=== PATIENT | male | born 1955 | race American Indian/Alaskan Native ===

== ENCOUNTER 2020-11-01 09:34 | Inpatient (IN) | payer OTHER ==
[2020-11-01 15:01] VITALS: BMI 25.0
[2020-11-01] MEDS ORDERED: LOPERAMIDE HCL 2 MG CAPSULE PO PRN (15:40)
[2020-11-01] MEDS ORDERED: guaiFENesin 200 MG/10 ML 10 ML UNIT-DOSE CUPS PO PRN (15:40)
[2020-11-01] MEDS ORDERED: P-EPHED 60MG/TRIPROLIDI 2.5MG TABLET PO PRN (15:40)
[2020-11-01] MEDS ORDERED: ACETAMINOPHEN 325 MG TABLET (FP) PO PRN (15:40)
[2020-11-01] MEDS ORDERED: MAGNESIUM HYDROX 2400MG/30ML ORAL SUSPENSION 30 ML CUP PO PRN (15:40)
[2020-11-01] MEDS ORDERED: MAGNESIUM CITRATE 300 ML BOTTLE PO PRN (15:40)
[2020-11-01] MEDS ORDERED: DOCUSATE SODIUM 100 MG CAPSULE (FP) PO PRN (15:44)
[2020-11-01] MEDS ORDERED: TUBERCULIN PPD 5 TU/0.1ML VIAL ID ONE (17:38)
[2020-11-01] MEDS: MAG HYDROX/AL HYDROX/SIMETH 30 ML UNIT-DOSE CUP PO PRN (17:44)
[2020-11-01] MEDS: PRENATAL VITAMINS W/ FOLIC ACID TABLET (FP) PO SCH (17:44)
[2020-11-01] MEDS: hydrOXYzine PAMOATE 25 MG CAPSULE (FP) PO SCH ×2 (17:45→21:57)
[2020-11-01] MEDS: NICOTINE POLACRILEX 2 MG GUM BUC PRN (17:45)
[2020-11-01] MEDS: NICOTINE 7 MG/24 HOURS TOPICAL PATCH TD SCH (18:02)
[2020-11-01] MEDS: MELATONIN 5 MG TABLETS PO SCH (21:55)
[2020-11-01] MEDS: THIAMINE HCL 100 MG TABLET (FP) PO SCH (21:57)
[2020-11-02] MEDS: hydrOXYzine PAMOATE 25 MG CAPSULE (FP) PO SCH ×5 (06:27→21:17)
[2020-11-02] MEDS: IBUPROFEN 400 MG TABLET (FP) PO PRN ×2 (06:28→21:15)
[2020-11-02] MEDS ORDERED: METHADONE HCL 10 MG TABLET PO ONE (08:12)
[2020-11-02] MEDS: PRENATAL VITAMINS W/ FOLIC ACID TABLET (FP) PO SCH (09:58)
[2020-11-02] MEDS: LOSARTAN POTASSIUM 50 MG TABLET PO SCH (09:58)
[2020-11-02] MEDS: amLODIPine BESYLATE 10 MG TABLET (FP) PO SCH (09:59)
[2020-11-02] MEDS: NICOTINE 7 MG/24 HOURS TOPICAL PATCH TD SCH (09:59)
[2020-11-02] MEDS ORDERED: PANTOPRAZOLE 40 MG TABLET PO ONE (10:35)
[2020-11-02 10:45] LABS: CALCIUM 8.5 mg/dL (8.5-10.1); HEMATOCRIT 39.5 % (35.4-49); HEMOGLOBIN 13.2 GM/dL (11.7-16.9); MCH 31.9 pg (25.7-33.7); MCHC 33.4 g/dl (32.0-35.9); MEAN CELL VOLUME 95.7 fl (80-96); MEAN PLT VOLUME 9.1 fl (7.5-11.1); PLATELET COUNT 188 K/MM3 (134-434); RBC 4.13 M/mm3 (4.00-5.60); RDW 14.9 % (11.9-15.9); WHITE BLOOD COUNT 6.4 K/mm3 (4.0-10.0)
[2020-11-02 10:46] LABS: ALBUMIN 3.3 g/dl (3.4-5.0); BLOOD UREA NITROGEN 16.4 mg/dL (7-18)
[2020-11-02 10:49] LABS: CREATININE 1.2 mg/dL (0.55-1.3)
[2020-11-02 10:51] LABS: BILIRUBIN,TOTAL 0.3 mg/dL (0.2-1); TOT PROT 6.4 g/dl (6.4-8.2)
[2020-11-02] MEDS: ABACAVIR/DOLUTEGRAVIR/LAMIVUDI (TRIUMEQ) TABLET -NF PO SCH (10:53)
[2020-11-02] MEDS: MAG HYDROX/AL HYDROX/SIMETH 30 ML UNIT-DOSE CUP PO PRN ×2 (13:46→19:56)
[2020-11-02] MEDS: THIAMINE HCL 100 MG TABLET (FP) PO SCH (21:15)
[2020-11-02] MEDS: MELATONIN 5 MG TABLETS PO SCH (21:15)
[2020-11-03] MEDS: METHADONE HCL 10 MG TABLET PO SCH (06:20)
[2020-11-03] MEDS: hydrOXYzine PAMOATE 25 MG CAPSULE (FP) PO SCH ×5 (06:20→22:06)
[2020-11-03] MEDS: PRENATAL VITAMINS W/ FOLIC ACID TABLET (FP) PO SCH (10:18)
[2020-11-03] MEDS: LOSARTAN POTASSIUM 50 MG TABLET PO SCH (10:18)
[2020-11-03] MEDS: PANTOPRAZOLE 40 MG TABLET PO SCH (10:19)
[2020-11-03] MEDS: amLODIPine BESYLATE 10 MG TABLET (FP) PO SCH (10:19)
[2020-11-03] MEDS: ABACAVIR/DOLUTEGRAVIR/LAMIVUDI (TRIUMEQ) TABLET -NF PO SCH (10:19)
[2020-11-03] MEDS: NICOTINE 7 MG/24 HOURS TOPICAL PATCH TD SCH (10:19)
[2020-11-03] MEDS: ALBUTEROL SO4 HFA INHALER IH PRN (17:03)
[2020-11-03 17:04] LABS: EPI CELLS 6 /uL (0-25.1); HYALINE CASTS 1 /uL (0-3.1); PH,URINE 5.5 (5.0-8.0); URINE APPEARANCE CLEAR; URINE BACTERIA 52 /uL (0-1359); URINE BILIRUBIN NEGATIVE (NEGATIVE); URINE COLOR YELLOW; URINE GLUCOSE (UA) NEGATIVE (NEGATIVE); URINE KETONE NEGATIVE (NEGATIVE); URINE LEUK ESTERASE NEGATIVE (NEGATIVE); URINE NITRITE NEGATIVE (NEGATIVE); URINE PROTEIN 2+ (NEGATIVE); URINE RBC 6 /uL (0-23.9); URINE UROBILINOGEN 0.2 mg/dL (0.2-1.0); URINE WBC 2 /uL (0-25.8)
[2020-11-03] MEDS: THIAMINE HCL 100 MG TABLET (FP) PO SCH (21:37)
[2020-11-03] MEDS: MELATONIN 5 MG TABLETS PO SCH (21:37)
[2020-11-04] MEDS: IBUPROFEN 400 MG TABLET (FP) PO PRN (06:10)
[2020-11-04] MEDS: METHADONE HCL 10 MG TABLET PO SCH (06:11)
[2020-11-04] MEDS: hydrOXYzine PAMOATE 25 MG CAPSULE (FP) PO SCH ×5 (06:11→21:25)
[2020-11-04] MEDS: ALBUTEROL SO4 HFA INHALER IH PRN ×2 (06:15→21:25)
[2020-11-04] MEDS: LOSARTAN POTASSIUM 50 MG TABLET PO SCH (09:36)
[2020-11-04] MEDS: PANTOPRAZOLE 40 MG TABLET PO SCH (09:36)
[2020-11-04] MEDS: amLODIPine BESYLATE 10 MG TABLET (FP) PO SCH (09:36)
[2020-11-04] MEDS: PRENATAL VITAMINS W/ FOLIC ACID TABLET (FP) PO SCH (09:36)
[2020-11-04] MEDS: ABACAVIR/DOLUTEGRAVIR/LAMIVUDI (TRIUMEQ) TABLET -NF PO SCH (09:37)
[2020-11-04] MEDS: NICOTINE 7 MG/24 HOURS TOPICAL PATCH TD SCH (09:37)
[2020-11-04] MEDS: THIAMINE HCL 100 MG TABLET (FP) PO SCH (21:25)
[2020-11-04] MEDS: MELATONIN 5 MG TABLETS PO SCH (21:35)
[2020-11-05] MEDS: ALBUTEROL SO4 HFA INHALER IH PRN ×2 (06:09→16:13)
[2020-11-05] MEDS: METHADONE HCL 10 MG TABLET PO SCH (06:11)
[2020-11-05] MEDS: hydrOXYzine PAMOATE 25 MG CAPSULE (FP) PO SCH ×2 (06:12→10:11)
[2020-11-05] MEDS: PRENATAL VITAMINS W/ FOLIC ACID TABLET (FP) PO SCH (10:09)
[2020-11-05] MEDS: NICOTINE 7 MG/24 HOURS TOPICAL PATCH TD SCH (10:09)
[2020-11-05] MEDS: LOSARTAN POTASSIUM 50 MG TABLET PO SCH (10:09)
[2020-11-05] MEDS: amLODIPine BESYLATE 10 MG TABLET (FP) PO SCH (10:09)
[2020-11-05] MEDS: NICOTINE POLACRILEX 2 MG GUM BUC PRN (10:09)
[2020-11-05] MEDS: PANTOPRAZOLE 40 MG TABLET PO SCH (10:09)
[2020-11-05] MEDS: ABACAVIR/DOLUTEGRAVIR/LAMIVUDI (TRIUMEQ) TABLET -NF PO SCH (10:10)
[2020-11-05] MEDS: MAG HYDROX/AL HYDROX/SIMETH 30 ML UNIT-DOSE CUP PO PRN (19:14)
[2020-11-05] MEDS: MELATONIN 5 MG TABLETS PO SCH (21:32)
[2020-11-05] MEDS: THIAMINE HCL 100 MG TABLET (FP) PO SCH (21:32)
[2020-11-06] MEDS: MAG HYDROX/AL HYDROX/SIMETH 30 ML UNIT-DOSE CUP PO PRN (00:42)
[2020-11-06] MEDS: METHADONE HCL 10 MG TABLET PO SCH (05:32)
[2020-11-06] MEDS ORDERED: PT OWN MED DRAWER 7, Y5N ONE (09:26)
[2020-11-06] MEDS: ALBUTEROL SO4 HFA INHALER IH PRN (10:12)
[2020-11-06] MEDS: PRENATAL VITAMINS W/ FOLIC ACID TABLET (FP) PO SCH (10:14)
[2020-11-06] MEDS: PANTOPRAZOLE 40 MG TABLET PO SCH (10:15)
[2020-11-06] MEDS: amLODIPine BESYLATE 10 MG TABLET (FP) PO SCH (10:15)
[2020-11-06] MEDS: LOSARTAN POTASSIUM 50 MG TABLET PO SCH (10:15)
[2020-11-06] MEDS: ABACAVIR/DOLUTEGRAVIR/LAMIVUDI (TRIUMEQ) TABLET -NF PO SCH (10:15)
[2020-11-06] MEDS: NICOTINE POLACRILEX 2 MG GUM BUC PRN (10:16)
[2020-11-06] MEDS: NICOTINE 7 MG/24 HOURS TOPICAL PATCH TD SCH (10:26)
[2020-11-06] MEDS ORDERED: ALBUTEROL SO4 2.5/IPRATROPIUM 0.5 INH SOL 3 ML VIAL.NEB. NEB SCH (13:30)
[2020-11-06] MEDS: THIAMINE HCL 100 MG TABLET (FP) PO SCH (21:55)
[2020-11-06] MEDS: hydrOXYzine PAMOATE 25 MG CAPSULE (FP) PO PRN (21:56)
[2020-11-06] MEDS: MELATONIN 5 MG TABLETS PO SCH (21:56)
[2020-11-06] MEDS: ALBUTEROL SO4 2.5/IPRATROPIUM 0.5 INH SOL 3 ML VIAL.NEB. NEB SCH (22:12)
[2020-11-07] MEDS: METHADONE HCL 10 MG TABLET PO SCH (06:33)
[2020-11-07] MEDS: PANTOPRAZOLE 40 MG TABLET PO SCH (10:15)
[2020-11-07] MEDS: PRENATAL VITAMINS W/ FOLIC ACID TABLET (FP) PO SCH (10:15)
[2020-11-07] MEDS: hydrOXYzine PAMOATE 25 MG CAPSULE (FP) PO PRN (10:15)
[2020-11-07] MEDS: ALBUTEROL SO4 2.5/IPRATROPIUM 0.5 INH SOL 3 ML VIAL.NEB. NEB SCH ×4 (10:15→22:42)
[2020-11-07] MEDS: amLODIPine BESYLATE 10 MG TABLET (FP) PO SCH (10:15)
[2020-11-07] MEDS: LOSARTAN POTASSIUM 50 MG TABLET PO SCH (10:15)
[2020-11-07] MEDS: NICOTINE 7 MG/24 HOURS TOPICAL PATCH TD SCH (10:16)
[2020-11-07] MEDS: NICOTINE POLACRILEX 2 MG GUM BUC PRN (10:16)
[2020-11-07] MEDS: ABACAVIR/DOLUTEGRAVIR/LAMIVUDI (TRIUMEQ) TABLET -NF PO SCH (10:17)
[2020-11-07] MEDS: IBUPROFEN 400 MG TABLET (FP) PO PRN (12:36)
[2020-11-07] MEDS: THIAMINE HCL 100 MG TABLET (FP) PO SCH (21:09)
[2020-11-07] MEDS: MELATONIN 5 MG TABLETS PO SCH (21:09)
[2020-11-07] MEDS: MAG HYDROX/AL HYDROX/SIMETH 30 ML UNIT-DOSE CUP PO PRN (23:04)
[2020-11-08] MEDS: ALBUTEROL SO4 HFA INHALER IH PRN ×2 (03:27→21:33)
[2020-11-08] MEDS: METHADONE HCL 10 MG TABLET PO SCH (06:12)
[2020-11-08] MEDS: PRENATAL VITAMINS W/ FOLIC ACID TABLET (FP) PO SCH (09:57)
[2020-11-08] MEDS: LOSARTAN POTASSIUM 50 MG TABLET PO SCH (09:58)
[2020-11-08] MEDS: PANTOPRAZOLE 40 MG TABLET PO SCH (09:59)
[2020-11-08] MEDS: amLODIPine BESYLATE 10 MG TABLET (FP) PO SCH (09:59)
[2020-11-08] MEDS: ABACAVIR/DOLUTEGRAVIR/LAMIVUDI (TRIUMEQ) TABLET -NF PO SCH (09:59)
[2020-11-08] MEDS: NICOTINE 7 MG/24 HOURS TOPICAL PATCH TD SCH (09:59)
[2020-11-08] MEDS: NICOTINE POLACRILEX 2 MG GUM BUC PRN (10:00)
[2020-11-08] MEDS: ALBUTEROL SO4 2.5/IPRATROPIUM 0.5 INH SOL 3 ML VIAL.NEB. NEB SCH ×4 (10:00→23:40)
[2020-11-08] MEDS: IBUPROFEN 400 MG TABLET (FP) PO PRN (10:01)
[2020-11-08] MEDS: MAG HYDROX/AL HYDROX/SIMETH 30 ML UNIT-DOSE CUP PO PRN (18:40)
[2020-11-08] MEDS: FAMOTIDINE 20 MG TABLET PO SCH (21:33)
[2020-11-08] MEDS: THIAMINE HCL 100 MG TABLET (FP) PO SCH (21:33)
[2020-11-08 22:03] VITALS: TEMP 97.8
[2020-11-08] MEDS: MELATONIN 5 MG TABLETS PO SCH (23:40)
[2020-11-09] MEDS: MAG HYDROX/AL HYDROX/SIMETH 30 ML UNIT-DOSE CUP PO PRN (00:55)
[2020-11-09] MEDS ORDERED: METHADONE HCL 10 MG TABLET PO SCH (06:00)
[2020-11-09 07:06] VITALS: BP 135/75; PULSE 72
[2020-11-09] MEDS: ALBUTEROL SO4 2.5/IPRATROPIUM 0.5 INH SOL 3 ML VIAL.NEB. NEB SCH (09:06)
[2020-11-09] MEDS: PRENATAL VITAMINS W/ FOLIC ACID TABLET (FP) PO SCH (09:09)
[2020-11-09] MEDS: LOSARTAN POTASSIUM 50 MG TABLET PO SCH (09:09)
[2020-11-09] MEDS: amLODIPine BESYLATE 10 MG TABLET (FP) PO SCH (09:09)
[2020-11-09] MEDS: FAMOTIDINE 20 MG TABLET PO SCH (09:10)
[2020-11-09] MEDS: NICOTINE 7 MG/24 HOURS TOPICAL PATCH TD SCH (09:10)
[2020-11-09] MEDS: ABACAVIR/DOLUTEGRAVIR/LAMIVUDI (TRIUMEQ) TABLET -NF PO SCH (09:11)
== END 2020-11-09 10:50 | disposition home or self-care (01) | DRG 895 ==
LOC: YASAS 09:34 → Y5N 15:36
PROVIDERS: ADMIT Allergy & Immunology; ATTEND Allergy & Immunology
PROC: HZ42ZZZ Group Counseling for Substance Abuse Treatment, Cognitive-Behavioral (ICD-10-PCS; principal; 2020-11-01)
DX: F11.20 Opioid dependence, uncomplicated (principal); F14.20 Cocaine dependence, uncomplicated; F17.210 Nicotine dependence, cigarettes, uncomplicated; F19.24 Other psychoactive substance dependence with psychoactive substance-induced mood disorder; F31.9 Bipolar disorder, unspecified; Z21 Asymptomatic human immunodeficiency virus [HIV] infection status; I10 Essential (primary) hypertension; J45.20 Mild intermittent asthma, uncomplicated; K21.9 Gastro-esophageal reflux disease without esophagitis; B18.2 Chronic viral hepatitis C; Z90.49 Acquired absence of other specified parts of digestive tract
CPT/HCPCS: 36415; 80053; 81003; 85027; 86780; 93005; 93010; 94640; C9803; U0003

== ENCOUNTER 2021-02-14 16:20 | Inpatient (IN) | payer OTHER ==
[2021-02-14] MEDS ORDERED: DOCUSATE SODIUM 100 MG CAPSULE (FP) PO PRN (17:39)
[2021-02-14] MEDS ORDERED: IBUPROFEN 400 MG TABLET (FP) PO PRN (17:41)
[2021-02-14] MEDS ORDERED: hydrOXYzine PAMOATE 25 MG CAPSULE (FP) PO PRN ×2 (17:41→17:49)
[2021-02-14] MEDS ORDERED: ONDANSETRON *ODT* 4 MG TABLET SL PRN (17:41)
[2021-02-14] MEDS ORDERED: MAG HYDROX/AL HYDROX/SIMETH 30 ML UNIT-DOSE CUP PO PRN (17:41)
[2021-02-14] MEDS ORDERED: METHOCARBAMOL 500 MG TABLET PO PRN (17:41)
[2021-02-14] MEDS ORDERED: BISMUTH SUBSALICYLATE 524 MG/30 ML PO PRN (17:41)
[2021-02-14] MEDS ORDERED: MAGNESIUM HYDROX 2400MG/30ML ORAL SUSPENSION 30 ML CUP PO PRN (17:41)
[2021-02-14] MEDS ORDERED: MAGNESIUM CITRATE 300 ML BOTTLE PO PRN (17:41)
[2021-02-14] MEDS ORDERED: ACETAMINOPHEN 325 MG TABLET (FP) PO PRN ×2 (17:41)
[2021-02-14] MEDS ORDERED: MENTHOL/PHENOL 1 EACH UD MM PRN (17:41)
[2021-02-14] MEDS ORDERED: METHADONE HCL 10 MG TABLET (FOR DETOX USE ONLY) PO ONE ×2 (17:43→19:00)
[2021-02-14] MEDS ORDERED: cloNIDine HCL 0.1 MG TABLET PO PRN (17:43)
[2021-02-14 18:13] VITALS: BMI 24.8
[2021-02-14] MEDS: amLODIPine BESYLATE 10 MG TABLET (FP) PO SCH (19:05)
[2021-02-14] MEDS: MELATONIN 5 MG TABLETS PO SCH (22:11)
[2021-02-14] MEDS: THIAMINE HCL 100 MG TABLET (FP) PO SCH (22:12)
[2021-02-14] MEDS: ABACAVIR/DOLUTEGRAVIR/LAMIVUDI (TRIUMEQ) TABLET -NF PO SCH (22:12)
[2021-02-15] MEDS ORDERED: METHADONE HCL 10 MG TABLET (FOR DETOX USE ONLY) ONE (09:07)
[2021-02-15] MEDS ORDERED: METHADONE HCL 5 MG TABLET (FOR DETOX USE ONLY) ONE (09:07)
[2021-02-15] MEDS ORDERED: METHADONE HCL 10 MG TABLET (FOR DETOX USE ONLY) PO ONE ×2 (10:00)
[2021-02-15] MEDS ORDERED: METHADONE (DETOX) 10 MG, METHADONE (DETOX) 5 MG PO SCH (10:00)
[2021-02-15] MEDS: LOSARTAN POTASSIUM 50 MG TABLET PO SCH (10:03)
[2021-02-15] MEDS: PRENATAL VITAMINS W/ FOLIC ACID TABLET (FP) PO SCH (10:03)
[2021-02-15] MEDS: amLODIPine BESYLATE 10 MG TABLET (FP) PO SCH (10:04)
[2021-02-15] MEDS: ABACAVIR/DOLUTEGRAVIR/LAMIVUDI (TRIUMEQ) TABLET -NF PO SCH ×2 (10:05→22:18)
[2021-02-15 10:12] LABS: HEMATOCRIT 37.7 % (35.4-49); HEMOGLOBIN 12.4 GM/dL (11.7-16.9); MCH 31.3 pg (25.7-33.7); MEAN CELL VOLUME 94.8 fl (80-96); MEAN PLT VOLUME 8.4 fl (7.5-11.1); PLATELET COUNT 256 10^3/uL (134-434); RBC 3.97 M/mm3 (4.00-5.60); RDW 14.2 % (11.9-15.9); WHITE BLOOD COUNT 9.2 K/mm3 (4.0-10.0)
[2021-02-15 10:13] LABS: CALCIUM 8.9 mg/dL (8.5-10.1)
[2021-02-15 10:14] LABS: BLOOD UREA NITROGEN 17.4 mg/dL (7-18)
[2021-02-15 10:17] LABS: CREATININE 1.1 mg/dL (0.55-1.3)
[2021-02-15 10:18] LABS: BILIRUBIN,TOTAL 0.4 mg/dL (0.2-1)
[2021-02-15] MEDS: PATIENT'S OWN MEDICATION (NON-FORMULARY) (Omeprazole 20 MG Capsule.Dr) PO SCH (13:59)
[2021-02-15] MEDS: THIAMINE HCL 100 MG TABLET (FP) PO SCH (22:18)
[2021-02-15] MEDS: FERROUS SO4 325 MG TABLET (FP) PO SCH (22:18)
[2021-02-15] MEDS: MELATONIN 5 MG TABLETS PO SCH (22:18)
[2021-02-16] MEDS ORDERED: ALBUTEROL SO4 HFA INHALER IH PRN (08:47)
[2021-02-16] MEDS ORDERED: METHADONE HCL 10 MG TABLET (FOR DETOX USE ONLY) PO ONE ×2 (10:00)
[2021-02-16] MEDS: amLODIPine BESYLATE 10 MG TABLET (FP) PO SCH (10:11)
[2021-02-16] MEDS: LOSARTAN POTASSIUM 50 MG TABLET PO SCH (10:11)
[2021-02-16] MEDS: FERROUS SO4 325 MG TABLET (FP) PO SCH ×2 (10:11→22:16)
[2021-02-16] MEDS: PRENATAL VITAMINS W/ FOLIC ACID TABLET (FP) PO SCH (10:11)
[2021-02-16] MEDS: PATIENT'S OWN MEDICATION (NON-FORMULARY) (Omeprazole 20 MG Capsule.Dr) PO SCH (10:14)
[2021-02-16] MEDS: THIAMINE HCL 100 MG TABLET (FP) PO SCH (22:16)
[2021-02-16] MEDS: MELATONIN 5 MG TABLETS PO SCH (22:17)
[2021-02-16] MEDS: ABACAVIR/DOLUTEGRAVIR/LAMIVUDI (TRIUMEQ) TABLET -NF PO SCH (22:17)
[2021-02-17] MEDS ORDERED: METHADONE HCL 5 MG TABLET (FOR DETOX USE ONLY) PO ONE (06:00)
[2021-02-17] MEDS ORDERED: METHADONE HCL 10 MG TABLET (FOR DETOX USE ONLY) PO ONE (10:00)
[2021-02-17] MEDS: LOSARTAN POTASSIUM 50 MG TABLET PO SCH (10:08)
[2021-02-17] MEDS: amLODIPine BESYLATE 10 MG TABLET (FP) PO SCH (10:08)
[2021-02-17] MEDS: FERROUS SO4 325 MG TABLET (FP) PO SCH ×2 (10:08→22:10)
[2021-02-17] MEDS: PATIENT'S OWN MEDICATION (NON-FORMULARY) (Omeprazole 20 MG Capsule.Dr) PO SCH (10:08)
[2021-02-17] MEDS: PRENATAL VITAMINS W/ FOLIC ACID TABLET (FP) PO SCH (10:08)
[2021-02-17] MEDS: ABACAVIR/DOLUTEGRAVIR/LAMIVUDI (TRIUMEQ) TABLET -NF PO SCH (22:10)
[2021-02-17] MEDS: THIAMINE HCL 100 MG TABLET (FP) PO SCH (22:10)
[2021-02-17] MEDS: MELATONIN 5 MG TABLETS PO SCH (22:10)
[2021-02-18] MEDS ORDERED: METHADONE HCL 5 MG TABLET (FOR DETOX USE ONLY) PO ONE (06:00)
[2021-02-18 06:43] VITALS: PULSE 81
[2021-02-18 09:21] VITALS: BP 140/73; TEMP 97.5
[2021-02-18] MEDS: LOSARTAN POTASSIUM 50 MG TABLET PO SCH (09:23)
[2021-02-18] MEDS: PATIENT'S OWN MEDICATION (NON-FORMULARY) (Omeprazole 20 MG Capsule.Dr) PO SCH (09:23)
[2021-02-18] MEDS: amLODIPine BESYLATE 10 MG TABLET (FP) PO SCH (09:24)
[2021-02-18] MEDS: FERROUS SO4 325 MG TABLET (FP) PO SCH (09:25)
[2021-02-18] MEDS: PRENATAL VITAMINS W/ FOLIC ACID TABLET (FP) PO SCH (09:27)
== END 2021-02-18 09:29 | disposition home or self-care (01) | DRG 897 ==
LOC: YASAS 16:20 → Y6N 17:53
PROVIDERS: ADMIT Allergy & Immunology; ATTEND Allergy & Immunology
PROC: HZ2ZZZZ Detoxification Services for Substance Abuse Treatment (ICD-10-PCS; principal; 2021-02-14)
DX: F11.23 Opioid dependence with withdrawal (principal); F14.20 Cocaine dependence, uncomplicated; F17.210 Nicotine dependence, cigarettes, uncomplicated; Z21 Asymptomatic human immunodeficiency virus [HIV] infection status; D64.9 Anemia, unspecified; I10 Essential (primary) hypertension; K21.9 Gastro-esophageal reflux disease without esophagitis; J44.9 Chronic obstructive pulmonary disease, unspecified; J45.20 Mild intermittent asthma, uncomplicated; R63.4 Abnormal weight loss; Z68.24 Body mass index [BMI] 24.0-24.9, adult; Z90.49 Acquired absence of other specified parts of digestive tract
CPT/HCPCS: 36415; 80053; 85027; 86780; 93005; 93010; C9803; U0003; U0005

== ENCOUNTER 2021-08-08 14:31 | Inpatient (IN) | payer OTHER ==
[2021-08-08 15:57] VITALS: BMI 24.3
[2021-08-08] MEDS ORDERED: guaiFENesin 200 MG/10 ML 10 ML UNIT-DOSE CUPS PO PRN (16:16)
[2021-08-08] MEDS ORDERED: LOPERAMIDE HCL 2 MG CAPSULE PO PRN (16:16)
[2021-08-08] MEDS ORDERED: ACETAMINOPHEN 325 MG TABLET (FP) PO PRN (16:16)
[2021-08-08] MEDS ORDERED: MAGNESIUM CITRATE 300 ML BOTTLE PO PRN (16:16)
[2021-08-08] MEDS ORDERED: MAGNESIUM HYDROX 2400MG/30ML ORAL SUSPENSION 30 ML CUP PO PRN (16:16)
[2021-08-08] MEDS ORDERED: NICOTINE 10 MG CARTRIDGE (INHALER) IH PRN (16:16)
[2021-08-08] MEDS ORDERED: P-EPHED 60MG/TRIPROLIDI 2.5MG TABLET PO PRN (16:16)
[2021-08-08] MEDS: hydrOXYzine PAMOATE 25 MG CAPSULE (FP) PO SCH ×2 (20:37→21:46)
[2021-08-08] MEDS: MAG HYDROX/AL HYDROX/SIMETH 30 ML UNIT-DOSE CUP PO PRN (20:37)
[2021-08-08] MEDS: MELATONIN 5 MG TABLETS PO SCH (21:46)
[2021-08-08] MEDS: THIAMINE HCL 100 MG TABLET (FP) PO SCH (21:47)
[2021-08-09] MEDS: methaDONE HCL 10 MG TABLET PO SCH (07:38)
[2021-08-09] MEDS: hydrOXYzine PAMOATE 25 MG CAPSULE (FP) PO SCH (07:39)
[2021-08-09] MEDS: NICOTINE 7 MG/24 HOURS TOPICAL PATCH TD SCH (09:35)
[2021-08-09] MEDS: PRENATAL VITAMINS W/ FOLIC ACID TABLET (FP) PO SCH (09:37)
[2021-08-09] MEDS: IBUPROFEN 400 MG TABLET (FP) PO PRN (09:37)
[2021-08-09] MEDS ORDERED: PATIENT'S OWN MEDICATION (NON-FORMULARY) (Losartan Potassium [Losartan Potassium] 100 MG T PO SCH (10:30)
[2021-08-09 10:34] LABS: HEMATOCRIT 36.8 % (35.4-49); HEMOGLOBIN 12.3 GM/dL (11.7-16.9); MCH 31.9 pg (25.7-33.7); MCHC 33.5 g/dl (32.0-35.9); MEAN PLT VOLUME 8.3 fl (7.5-11.1); PLATELET COUNT 226 10^3/uL (134-434); RBC 3.87 M/mm3 (4.00-5.60); RDW 14.8 % (11.9-15.9)
[2021-08-09 10:44] LABS: EPI CELLS 3 /uL (0-25.1); HYALINE CASTS 0 /uL (0-3.1); PH,URINE 7.5 (5.0-8.0); URINE APPEARANCE TURBID; URINE BACTERIA 13 /uL (0-1359); URINE BILIRUBIN NEGATIVE (NEGATIVE); URINE COLOR YELLOW; URINE GLUCOSE (UA) NEGATIVE (NEGATIVE); URINE KETONE NEGATIVE (NEGATIVE); URINE LEUK ESTERASE NEGATIVE (NEGATIVE); URINE NITRITE NEGATIVE (NEGATIVE); URINE PROTEIN 1+ (NEGATIVE); URINE RBC 2 /uL (0-23.9); URINE UROBILINOGEN 0.2 mg/dL (0.2-1.0); URINE WBC 4 /uL (0-25.8)
[2021-08-09 10:47] LABS: ALBUMIN 3.2 g/dl (3.4-5.0); BLOOD UREA NITROGEN 20.1 mg/dL (7-18); CALCIUM 8.3 mg/dL (8.5-10.1)
[2021-08-09 10:50] LABS: CREATININE 1.1 mg/dL (0.55-1.3)
[2021-08-09 10:52] LABS: BILIRUBIN,TOTAL 0.2 mg/dL (0.2-1); TOT PROT 6.2 g/dl (6.4-8.2)
[2021-08-09] MEDS: PANTOPRAZOLE 20 MG TABLET PO SCH (12:29)
[2021-08-09] MEDS: amLODIPine BESYLATE 10 MG TABLET (FP) PO SCH (12:29)
[2021-08-09] MEDS: ABACAVIR/DOLUTEGRAVIR/LAMIVUDI (TRIUMEQ) TABLET -NF PO SCH (12:30)
[2021-08-09] MEDS: MELATONIN 5 MG TABLETS PO SCH (21:38)
[2021-08-09] MEDS: THIAMINE HCL 100 MG TABLET (FP) PO SCH (21:38)
[2021-08-10] MEDS: methaDONE HCL 10 MG TABLET PO SCH (06:38)
[2021-08-10] MEDS: amLODIPine BESYLATE 10 MG TABLET (FP) PO SCH (09:42)
[2021-08-10] MEDS: LOSARTAN POTASSIUM 50 MG TABLET PO SCH (09:42)
[2021-08-10] MEDS: DOCUSATE SODIUM 100 MG CAPSULE (FP) PO SCH (09:42)
[2021-08-10] MEDS: PANTOPRAZOLE 20 MG TABLET PO SCH (09:42)
[2021-08-10] MEDS: PRENATAL VITAMINS W/ FOLIC ACID TABLET (FP) PO SCH (09:43)
[2021-08-10] MEDS: NICOTINE 7 MG/24 HOURS TOPICAL PATCH TD SCH (09:47)
[2021-08-10] MEDS: ABACAVIR/DOLUTEGRAVIR/LAMIVUDI (TRIUMEQ) TABLET -NF PO SCH (09:48)
[2021-08-10] MEDS: IBUPROFEN 400 MG TABLET (FP) PO PRN (10:05)
[2021-08-10] MEDS ORDERED: BENZOCAINE 20 % GEL TUBE MM PRN (12:10)
[2021-08-10] MEDS ORDERED: PT OWN MED DRAWER 7, Y5N ONE ×3 (12:33→18:23)
[2021-08-10] MEDS: LIDOCAINE 5% TOPICAL PATCH TP SCH (12:40)
[2021-08-10] MEDS: DAPSONE 25 MG TABLET PO SCH (14:55)
[2021-08-10] MEDS: METHOCARBAMOL 500 MG TABLET PO SCH ×3 (14:55→21:37)
[2021-08-10] MEDS ORDERED: ABACAVIR/DOLUTEGRAVIR/LAMIVUDI (TRIUMEQ) TABLET -NF PO SCH (18:00)
[2021-08-10] MEDS: LAMIVUDI PO SCH (18:28)
[2021-08-10] MEDS: ABACAVIR PO SCH (18:28)
[2021-08-10] MEDS: DOLUTEGRAVIR PO SCH (18:28)
[2021-08-10] MEDS: THIAMINE HCL 100 MG TABLET (FP) PO SCH (21:36)
[2021-08-10] MEDS: MELATONIN 5 MG TABLETS PO SCH (21:39)
[2021-08-10] MEDS: METHYL SALICYLATE/MENTHOL OINT 30 GM TUBE TP SCH (23:45)
[2021-08-10] MEDS: LIDOCAINE PATCH REMOVAL MC SCH (23:45)
[2021-08-11] MEDS: methaDONE HCL 10 MG TABLET PO SCH (06:36)
[2021-08-11] MEDS ORDERED: PT OWN MED DRAWER 7, Y5N ONE ×2 (08:23→18:07)
[2021-08-11] MEDS: ALBUTEROL SO4 HFA INHALER IH PRN (09:03)
[2021-08-11] MEDS: PANTOPRAZOLE 20 MG TABLET PO SCH (09:05)
[2021-08-11] MEDS: DOCUSATE SODIUM 100 MG CAPSULE (FP) PO SCH (09:06)
[2021-08-11] MEDS: amLODIPine BESYLATE 10 MG TABLET (FP) PO SCH (09:06)
[2021-08-11] MEDS: METHOCARBAMOL 500 MG TABLET PO SCH ×4 (09:06→21:28)
[2021-08-11] MEDS: LOSARTAN POTASSIUM 50 MG TABLET PO SCH (09:06)
[2021-08-11] MEDS: METHYL SALICYLATE/MENTHOL OINT 30 GM TUBE TP SCH (09:06)
[2021-08-11] MEDS: PRENATAL VITAMINS W/ FOLIC ACID TABLET (FP) PO SCH (09:07)
[2021-08-11] MEDS: DAPSONE 25 MG TABLET PO SCH (09:07)
[2021-08-11] MEDS: NICOTINE 7 MG/24 HOURS TOPICAL PATCH TD SCH (09:07)
[2021-08-11] MEDS: LIDOCAINE 5% TOPICAL PATCH TP SCH (11:00)
[2021-08-11] MEDS: LAMIVUDI PO SCH (18:11)
[2021-08-11] MEDS: ABACAVIR PO SCH (18:11)
[2021-08-11] MEDS: DOLUTEGRAVIR PO SCH (18:11)
[2021-08-11] MEDS: THIAMINE HCL 100 MG TABLET (FP) PO SCH (21:27)
[2021-08-11] MEDS: LIDOCAINE PATCH REMOVAL MC SCH (21:28)
[2021-08-11] MEDS: MELATONIN 5 MG TABLETS PO SCH (21:28)
[2021-08-12] MEDS ORDERED: methaDONE HCL 10 MG TABLET ONE (04:45)
[2021-08-12] MEDS ORDERED: methaDONE HCL 40 MG DISPERSABLE TABLET ONE (04:45)
[2021-08-12] MEDS: methaDONE 40 MG, methaDONE 10 MG PO SCH (06:26)
[2021-08-12] MEDS ORDERED: PT OWN MED DRAWER 7, Y5N ONE ×3 (09:01→17:47)
[2021-08-12] MEDS: LOSARTAN POTASSIUM 50 MG TABLET PO SCH (09:35)
[2021-08-12] MEDS: amLODIPine BESYLATE 10 MG TABLET (FP) PO SCH (09:35)
[2021-08-12] MEDS: DOCUSATE SODIUM 100 MG CAPSULE (FP) PO SCH (09:35)
[2021-08-12] MEDS: DAPSONE 25 MG TABLET PO SCH (09:35)
[2021-08-12] MEDS: METHYL SALICYLATE/MENTHOL OINT 30 GM TUBE TP SCH (09:35)
[2021-08-12] MEDS: PRENATAL VITAMINS W/ FOLIC ACID TABLET (FP) PO SCH (09:35)
[2021-08-12] MEDS: PANTOPRAZOLE 20 MG TABLET PO SCH (09:36)
[2021-08-12] MEDS: METHOCARBAMOL 500 MG TABLET PO SCH ×4 (09:36→21:40)
[2021-08-12] MEDS: NICOTINE 7 MG/24 HOURS TOPICAL PATCH TD SCH (09:36)
[2021-08-12] MEDS: LIDOCAINE 5% TOPICAL PATCH TP SCH (10:13)
[2021-08-12] MEDS: MINERAL OIL/PETROLAT/WATER TOPICAL CREAM 113 GM JAR TP SCH (17:45)
[2021-08-12] MEDS: DOLUTEGRAVIR PO SCH (17:47)
[2021-08-12] MEDS: ABACAVIR PO SCH (17:47)
[2021-08-12] MEDS: LAMIVUDI PO SCH (17:47)
[2021-08-12] MEDS: hydrOXYzine PAMOATE 25 MG CAPSULE (FP) PO PRN (17:48)
[2021-08-12] MEDS: MELATONIN 5 MG TABLETS PO SCH (21:38)
[2021-08-12] MEDS: THIAMINE HCL 100 MG TABLET (FP) PO SCH (21:38)
[2021-08-12] MEDS: MAG HYDROX/AL HYDROX/SIMETH 30 ML UNIT-DOSE CUP PO PRN (21:39)
[2021-08-12] MEDS: COLLOIDAL OATMEAL 1 BAR EACH TP PRN (21:39)
[2021-08-13] MEDS ORDERED: methaDONE HCL 10 MG TABLET ONE (04:00)
[2021-08-13] MEDS ORDERED: methaDONE HCL 40 MG DISPERSABLE TABLET ONE (04:00)
[2021-08-13] MEDS: methaDONE 40 MG, methaDONE 10 MG PO SCH (06:25)
[2021-08-13] MEDS: hydrOXYzine PAMOATE 25 MG CAPSULE (FP) PO PRN ×2 (08:35→17:34)
[2021-08-13] MEDS: DOCUSATE SODIUM 100 MG CAPSULE (FP) PO SCH (09:41)
[2021-08-13] MEDS: PANTOPRAZOLE 20 MG TABLET PO SCH (09:41)
[2021-08-13] MEDS: amLODIPine BESYLATE 10 MG TABLET (FP) PO SCH (09:41)
[2021-08-13] MEDS: PRENATAL VITAMINS W/ FOLIC ACID TABLET (FP) PO SCH (09:41)
[2021-08-13] MEDS: LOSARTAN POTASSIUM 50 MG TABLET PO SCH (09:41)
[2021-08-13] MEDS: NICOTINE 7 MG/24 HOURS TOPICAL PATCH TD SCH (09:42)
[2021-08-13] MEDS: DAPSONE 25 MG TABLET PO SCH (09:42)
[2021-08-13] MEDS: METHYL SALICYLATE/MENTHOL OINT 30 GM TUBE TP SCH (09:43)
[2021-08-13] MEDS: MINERAL OIL/PETROLAT/WATER TOPICAL CREAM 113 GM JAR TP SCH (09:54)
[2021-08-13] MEDS: METHOCARBAMOL 500 MG TABLET PO SCH ×3 (09:54→22:23)
[2021-08-13] MEDS: ALBUTEROL SO4 HFA INHALER IH PRN (12:23)
[2021-08-13] MEDS ORDERED: PT OWN MED DRAWER 7, Y5N ONE (17:30)
[2021-08-13] MEDS: ABACAVIR PO SCH (17:34)
[2021-08-13] MEDS: LAMIVUDI PO SCH (17:34)
[2021-08-13] MEDS: DOLUTEGRAVIR PO SCH (17:34)
[2021-08-13] MEDS: CALAMINE 8% TOPICAL LOTION 177 ML BOTTLE TP PRN (21:25)
[2021-08-13] MEDS: MELATONIN 5 MG TABLETS PO SCH (21:26)
[2021-08-13] MEDS: THIAMINE HCL 100 MG TABLET (FP) PO SCH (21:26)
[2021-08-13] MEDS: COLLOIDAL OATMEAL 1 BAR EACH TP PRN (22:20)
[2021-08-14] MEDS ORDERED: methaDONE HCL 40 MG DISPERSABLE TABLET ONE (03:05)
[2021-08-14] MEDS ORDERED: methaDONE HCL 10 MG TABLET ONE (03:05)
[2021-08-14] MEDS: methaDONE 40 MG, methaDONE 10 MG PO SCH (06:15)
[2021-08-14] MEDS: PRENATAL VITAMINS W/ FOLIC ACID TABLET (FP) PO SCH (09:25)
[2021-08-14] MEDS: LOSARTAN POTASSIUM 50 MG TABLET PO SCH (09:25)
[2021-08-14] MEDS: PANTOPRAZOLE 20 MG TABLET PO SCH (09:25)
[2021-08-14] MEDS: METHOCARBAMOL 500 MG TABLET PO SCH ×4 (09:25→23:16)
[2021-08-14] MEDS: DOCUSATE SODIUM 100 MG CAPSULE (FP) PO SCH (09:25)
[2021-08-14] MEDS: amLODIPine BESYLATE 10 MG TABLET (FP) PO SCH (09:25)
[2021-08-14] MEDS: METHYL SALICYLATE/MENTHOL OINT 30 GM TUBE TP SCH (09:25)
[2021-08-14] MEDS: ALBUTEROL SO4 HFA INHALER IH PRN (09:26)
[2021-08-14] MEDS: DAPSONE 25 MG TABLET PO SCH (09:26)
[2021-08-14] MEDS: NICOTINE 7 MG/24 HOURS TOPICAL PATCH TD SCH (09:27)
[2021-08-14] MEDS: MINERAL OIL/PETROLAT/WATER TOPICAL CREAM 113 GM JAR TP SCH (09:27)
[2021-08-14] MEDS: hydrOXYzine PAMOATE 25 MG CAPSULE (FP) PO PRN ×2 (10:05→21:28)
[2021-08-14] MEDS: LAMIVUDI PO SCH (18:08)
[2021-08-14] MEDS: DOLUTEGRAVIR PO SCH (18:08)
[2021-08-14] MEDS ORDERED: PT OWN MED DRAWER 7, Y5N ONE (18:08)
[2021-08-14] MEDS: ABACAVIR PO SCH (18:08)
[2021-08-14] MEDS: THIAMINE HCL 100 MG TABLET (FP) PO SCH (21:28)
[2021-08-14] MEDS: MELATONIN 5 MG TABLETS PO SCH (21:29)
[2021-08-15] MEDS: MAG HYDROX/AL HYDROX/SIMETH 30 ML UNIT-DOSE CUP PO PRN (00:51)
[2021-08-15] MEDS: ALBUTEROL SO4 HFA INHALER IH PRN ×2 (00:51→11:15)
[2021-08-15] MEDS ORDERED: PT OWN MED DRAWER 7, Y5N ONE ×3 (00:51→18:29)
[2021-08-15] MEDS ORDERED: methaDONE HCL 10 MG TABLET ONE (04:50)
[2021-08-15] MEDS ORDERED: methaDONE HCL 40 MG DISPERSABLE TABLET ONE (04:51)
[2021-08-15] MEDS: methaDONE 40 MG, methaDONE 10 MG PO SCH (06:37)
[2021-08-15] MEDS: amLODIPine BESYLATE 10 MG TABLET (FP) PO SCH (10:09)
[2021-08-15] MEDS: DOCUSATE SODIUM 100 MG CAPSULE (FP) PO SCH (10:09)
[2021-08-15] MEDS: METHOCARBAMOL 500 MG TABLET PO SCH ×4 (10:09→21:55)
[2021-08-15] MEDS: PANTOPRAZOLE 20 MG TABLET PO SCH (10:09)
[2021-08-15] MEDS: LOSARTAN POTASSIUM 50 MG TABLET PO SCH (10:09)
[2021-08-15] MEDS: PRENATAL VITAMINS W/ FOLIC ACID TABLET (FP) PO SCH (10:10)
[2021-08-15] MEDS: DAPSONE 25 MG TABLET PO SCH (10:10)
[2021-08-15] MEDS: METHYL SALICYLATE/MENTHOL OINT 30 GM TUBE TP SCH (10:11)
[2021-08-15] MEDS: HYDROCORTISONE 1% TOPICAL CREAM 30 GM TUBE TP PRN (10:11)
[2021-08-15] MEDS: NICOTINE 7 MG/24 HOURS TOPICAL PATCH TD SCH (10:12)
[2021-08-15] MEDS: MINERAL OIL/PETROLAT/WATER TOPICAL CREAM 113 GM JAR TP SCH (10:12)
[2021-08-15] MEDS: COLLOIDAL OATMEAL 1 BAR EACH TP PRN (10:34)
[2021-08-15] MEDS: CALAMINE 8% TOPICAL LOTION 177 ML BOTTLE TP PRN (10:34)
[2021-08-15] MEDS: DOLUTEGRAVIR PO SCH (18:32)
[2021-08-15] MEDS: LAMIVUDI PO SCH (18:32)
[2021-08-15] MEDS: ABACAVIR PO SCH (18:32)
[2021-08-15] MEDS: MELATONIN 5 MG TABLETS PO SCH (21:55)
[2021-08-15] MEDS: THIAMINE HCL 100 MG TABLET (FP) PO SCH (21:55)
[2021-08-16] MEDS ORDERED: methaDONE HCL 10 MG TABLET ONE (03:08)
[2021-08-16] MEDS ORDERED: methaDONE HCL 40 MG DISPERSABLE TABLET ONE (03:09)
[2021-08-16] MEDS: methaDONE 40 MG, methaDONE 10 MG PO SCH (06:38)
[2021-08-16] MEDS: METHYL SALICYLATE/MENTHOL OINT 30 GM TUBE TP SCH (09:54)
[2021-08-16] MEDS: DOCUSATE SODIUM 100 MG CAPSULE (FP) PO SCH (09:54)
[2021-08-16] MEDS: LOSARTAN POTASSIUM 50 MG TABLET PO SCH (09:55)
[2021-08-16] MEDS: NICOTINE 7 MG/24 HOURS TOPICAL PATCH TD SCH (09:55)
[2021-08-16] MEDS: PRENATAL VITAMINS W/ FOLIC ACID TABLET (FP) PO SCH (09:55)
[2021-08-16] MEDS: DAPSONE 25 MG TABLET PO SCH (09:55)
[2021-08-16] MEDS: amLODIPine BESYLATE 10 MG TABLET (FP) PO SCH (09:55)
[2021-08-16] MEDS: MINERAL OIL/PETROLAT/WATER TOPICAL CREAM 113 GM JAR TP SCH (09:55)
[2021-08-16] MEDS: METHOCARBAMOL 500 MG TABLET PO SCH ×4 (09:56→21:49)
[2021-08-16] MEDS: PANTOPRAZOLE 20 MG TABLET PO SCH (09:56)
[2021-08-16] MEDS: ALBUTEROL SO4 HFA INHALER IH PRN (09:57)
[2021-08-16] MEDS: HYDROCORTISONE 1% TOPICAL CREAM 30 GM TUBE TP PRN (09:57)
[2021-08-16] MEDS ORDERED: PT OWN MED DRAWER 7, Y5N ONE ×3 (10:08→18:18)
[2021-08-16] MEDS: ABACAVIR PO SCH (18:18)
[2021-08-16] MEDS: DOLUTEGRAVIR PO SCH (18:18)
[2021-08-16] MEDS: LAMIVUDI PO SCH (18:18)
[2021-08-16] MEDS: MAG HYDROX/AL HYDROX/SIMETH 30 ML UNIT-DOSE CUP PO PRN (21:48)
[2021-08-16] MEDS: THIAMINE HCL 100 MG TABLET (FP) PO SCH (21:48)
[2021-08-16] MEDS: MELATONIN 5 MG TABLETS PO SCH (21:49)
[2021-08-17] MEDS ORDERED: methaDONE HCL 10 MG TABLET ONE (03:11)
[2021-08-17] MEDS ORDERED: methaDONE HCL 40 MG DISPERSABLE TABLET ONE (03:11)
[2021-08-17] MEDS: methaDONE 40 MG, methaDONE 10 MG PO SCH (06:31)
[2021-08-17] MEDS ORDERED: METHOCARBAMOL 500 MG TABLET PO PRN (09:20)
[2021-08-17] MEDS: DOCUSATE SODIUM 100 MG CAPSULE (FP) PO SCH (09:55)
[2021-08-17] MEDS: PANTOPRAZOLE 20 MG TABLET PO SCH (09:55)
[2021-08-17] MEDS: amLODIPine BESYLATE 10 MG TABLET (FP) PO SCH (09:55)
[2021-08-17] MEDS: DAPSONE 25 MG TABLET PO SCH (09:56)
[2021-08-17] MEDS: PRENATAL VITAMINS W/ FOLIC ACID TABLET (FP) PO SCH (09:56)
[2021-08-17] MEDS: LOSARTAN POTASSIUM 50 MG TABLET PO SCH (09:56)
[2021-08-17] MEDS: NICOTINE 7 MG/24 HOURS TOPICAL PATCH TD SCH (09:58)
[2021-08-17] MEDS: MINERAL OIL/PETROLAT/WATER TOPICAL CREAM 113 GM JAR TP SCH (09:58)
[2021-08-17] MEDS: METHYL SALICYLATE/MENTHOL OINT 30 GM TUBE TP SCH (09:58)
[2021-08-17] MEDS: LAMIVUDI PO SCH (18:03)
[2021-08-17] MEDS: DOLUTEGRAVIR PO SCH (18:03)
[2021-08-17] MEDS ORDERED: PT OWN MED DRAWER 7, Y5N ONE ×2 (18:03→18:04)
[2021-08-17] MEDS: ABACAVIR PO SCH (18:03)
[2021-08-17] MEDS: MELATONIN 5 MG TABLETS PO SCH (21:36)
[2021-08-17] MEDS: THIAMINE HCL 100 MG TABLET (FP) PO SCH (21:36)
[2021-08-17] MEDS: MAG HYDROX/AL HYDROX/SIMETH 30 ML UNIT-DOSE CUP PO PRN (22:57)
[2021-08-18] MEDS ORDERED: methaDONE HCL 10 MG TABLET ONE (05:31)
[2021-08-18] MEDS ORDERED: methaDONE HCL 40 MG DISPERSABLE TABLET ONE (05:31)
[2021-08-18 06:43] VITALS: TEMP 97.1
[2021-08-18] MEDS: methaDONE 40 MG, methaDONE 10 MG PO SCH (06:49)
[2021-08-18] MEDS: amLODIPine BESYLATE 10 MG TABLET (FP) PO SCH (10:09)
[2021-08-18] MEDS: DOCUSATE SODIUM 100 MG CAPSULE (FP) PO SCH (10:09)
[2021-08-18] MEDS: METHYL SALICYLATE/MENTHOL OINT 30 GM TUBE TP SCH (10:09)
[2021-08-18] MEDS: LOSARTAN POTASSIUM 50 MG TABLET PO SCH (10:09)
[2021-08-18] MEDS: DAPSONE 25 MG TABLET PO SCH (10:09)
[2021-08-18] MEDS: PANTOPRAZOLE 20 MG TABLET PO SCH (10:10)
[2021-08-18] MEDS: PRENATAL VITAMINS W/ FOLIC ACID TABLET (FP) PO SCH (10:10)
[2021-08-18] MEDS: NICOTINE 7 MG/24 HOURS TOPICAL PATCH TD SCH (10:10)
[2021-08-18] MEDS: MINERAL OIL/PETROLAT/WATER TOPICAL CREAM 113 GM JAR TP SCH (10:11)
[2021-08-18] MEDS ORDERED: PT OWN MED DRAWER 7, Y5N ONE ×3 (10:15→18:03)
[2021-08-18] MEDS: LAMIVUDI PO SCH (18:03)
[2021-08-18] MEDS: DOLUTEGRAVIR PO SCH (18:03)
[2021-08-18] MEDS: ABACAVIR PO SCH (18:03)
[2021-08-18] MEDS: THIAMINE HCL 100 MG TABLET (FP) PO SCH (21:44)
[2021-08-18] MEDS: MELATONIN 5 MG TABLETS PO SCH (21:44)
[2021-08-18] MEDS: MAG HYDROX/AL HYDROX/SIMETH 30 ML UNIT-DOSE CUP PO PRN (21:44)
[2021-08-18] MEDS: IBUPROFEN 400 MG TABLET (FP) PO PRN (21:46)
[2021-08-19] MEDS ORDERED: methaDONE HCL 40 MG DISPERSABLE TABLET ONE (05:28)
[2021-08-19] MEDS ORDERED: methaDONE HCL 10 MG TABLET ONE (05:28)
[2021-08-19] MEDS ORDERED: methaDONE 40 MG, methaDONE 10 MG PO SCH (06:00)
[2021-08-19 06:43] VITALS: BP 127/73; PULSE 67
[2021-08-19] MEDS: amLODIPine BESYLATE 10 MG TABLET (FP) PO SCH (09:26)
[2021-08-19] MEDS: PRENATAL VITAMINS W/ FOLIC ACID TABLET (FP) PO SCH (09:26)
[2021-08-19] MEDS: PANTOPRAZOLE 20 MG TABLET PO SCH (09:26)
[2021-08-19] MEDS: DAPSONE 25 MG TABLET PO SCH (09:26)
[2021-08-19] MEDS: DOCUSATE SODIUM 100 MG CAPSULE (FP) PO SCH (09:26)
[2021-08-19] MEDS: METHYL SALICYLATE/MENTHOL OINT 30 GM TUBE TP SCH (09:27)
[2021-08-19] MEDS: LOSARTAN POTASSIUM 50 MG TABLET PO SCH (09:28)
[2021-08-19] MEDS: MINERAL OIL/PETROLAT/WATER TOPICAL CREAM 113 GM JAR TP SCH (09:28)
[2021-08-19] MEDS: NICOTINE 7 MG/24 HOURS TOPICAL PATCH TD SCH (09:28)
[2021-08-19] MEDS: COLLOIDAL OATMEAL 1 BAR EACH TP PRN (09:30)
== END 2021-08-19 09:30 | disposition home or self-care (01) | DRG 895 ==
LOC: YASAS 14:31 → Y3E 17:38
PROVIDERS: ADMIT Allergy & Immunology; ATTEND Allergy & Immunology
PROC: HZ42ZZZ Group Counseling for Substance Abuse Treatment, Cognitive-Behavioral (ICD-10-PCS; principal; 2021-08-08)
DX: F11.20 Opioid dependence, uncomplicated (principal); F14.20 Cocaine dependence, uncomplicated; F17.210 Nicotine dependence, cigarettes, uncomplicated; F32.A Depression, unspecified; F19.24 Other psychoactive substance dependence with psychoactive substance-induced mood disorder; I10 Essential (primary) hypertension; Z21 Asymptomatic human immunodeficiency virus [HIV] infection status; R60.0 Localized edema; R21 Rash and other nonspecific skin eruption; L29.9 Pruritus, unspecified; K12.0 Recurrent oral aphthae; K21.9 Gastro-esophageal reflux disease without esophagitis; J45.909 Unspecified asthma, uncomplicated; R63.4 Abnormal weight loss; Z68.24 Body mass index [BMI] 24.0-24.9, adult; Z86.19 Personal history of other infectious and parasitic diseases
CPT/HCPCS: 36415; 80053; 81003; 85027; 86780; 86803; 87522; 87811; C9803; U0003; U0005